=== PATIENT | male | born 1955 | race Caucasian/White ===

== ENCOUNTER 2017-05-02 10:42 | Emergency (ER) | payer OTHER ==
[~2017-05-02] VITALS: Ht 177.8 cm; Wt 93.0 kg
[~2017-05-02 10:42] MED LIST: ACET500 PO; AMOCLA875 PO; ASPI325 PO; ASPI81CH PO; ATOR20 PO; DILT120 PO; ELIQUIS5 MG PO; ENAL10 PO; FISH OIL PO; FISH1000 PO; FLONASE ALLERG9.9 ML; Flecainide Ace150 MG PO; Flonase 0.05% N16 GM; Hair, Skin & N1 EACH PO; MECL25 PO; METF500 PO; MULVITMIND PO; Norco 5-325 Ta1 EACH PO; ROXICODONE5 MG PO; Tambocor100 MG PO
[2017-05-02 12:07] LABS: BASOPHILS ABSOLUTE AUTO 0.02 K/mm3 (0.00-0.23); BASOPHILS PERCENT AUTO 0 % (0-2); EOSINOPHILS PERCENT AUTO 2 % (0-6); Hematocrit 43.6 % (37.0-53.0); Hemoglobin 15.2 g/dL (13.5-17.5); IMMATURE GRAN ABSOLUTE AUTO 0.02 K/mm3 (0.00-0.10); IMMATURE GRAN PERCENT AUTO 0 % (0-1); LYMPHOCYTES ABSOLUTE AUTO 2.03 K/mm3 (0.84-5.20); LYMPHOCYTES PERCENT AUTO 30 % (21-46); MONOCYTES ABSOLUTE AUTO 0.55 K/mm3 (0.16-1.47); MONOCYTES PERCENT AUTO 8 % (4-13); Mean Corpuscular HGB 31.4 pg (26.0-34.0); Mean Corpuscular HGB Conc 34.9 g/dL (31.5-36.5); Mean Corpuscular Volume 90 fL (80-100); Mean Platelet Volume 10.6 fL (9.1-12.4); NEUTROPHILS ABSOLUTE AUTO 4.02 K/mm3 (1.96-9.15); NEUTROPHILS PERCENT AUTO 60 % (41-73); Platelet Count 251 K/mm3 (150-400); RDW Coefficient Variation 12.1 % (11.7-14.2); RDW Standard Deviation 40.1 fL (35.1-46.3); Red Blood Cell Count 4.84 M/mm3 (4.30-5.90); White Blood Cell Count 6.74 K/mm3 (4.00-11.30)
[2017-05-02] MEDS ORDERED: CEPH500 PO (12:25)
[2017-05-02] MEDS ORDERED: Percocet 5-3251 EACH PO (12:25)
[2017-07-23] MEDS ORDERED: HYDCHL25 PO (10:05)
[2017-07-23] MEDS ORDERED: FLONASE ALLERG9.9 ML (10:06)
[2017-07-23] MEDS ORDERED: POTCHL10ER PO (10:06)
[2017-08-05] MEDS ORDERED: Percocet 5-3251 EACH PO (09:50)
== END 2017-05-02 12:44 | disposition home or self-care (01) ==
LOC: ER 10:42
PROVIDERS: Physician Assistant
DX: T81.4XXA Infection following a procedure, initial encounter (principal); Z79.899 Other long term (current) drug therapy; Z79.84 Long term (current) use of oral hypoglycemic drugs
CPT/HCPCS: 36415; 73562-RT; 85025; 85651; 86140; 99283

== ENCOUNTER → 2021-09-16 | Outpatient (CLI) | payer MEDICARE, OTHER ==
[~2021-09-16] MED LIST changes: +CEPH500 PO; +HYDCHL25 PO; +POTCHL10ER PO; +Percocet 5-3251 EACH PO
== END | disposition home or self-care (01) ==
LOC: PLD 11:03 → LAB SHORT 11:03
DX: L82.1 Other seborrheic keratosis (principal)
CPT/HCPCS: 88305

== ENCOUNTER 2021-10-09 14:25 | Emergency (ER) | payer MEDICARE, OTHER ==
[~2021-10-09] VITALS: Ht 180.3 cm; Wt 88.5 kg
[2021-10-09] MEDS ORDERED: Ultram50 MG PO (15:35)
== END 2021-10-09 15:54 | disposition home or self-care (01) ==
LOC: ER 14:25
DX: M54.50 Low back pain, unspecified (principal); W11.XXXA Fall on and from ladder, initial encounter
CPT/HCPCS: 71046; 72100; 96372; 99283-25; J1885

== ENCOUNTER → 2021-10-30 | Outpatient (CLI) | payer MEDICARE, OTHER ==
[~2021-10-30] MED LIST changes: +Ultram50 MG PO
== END | disposition home or self-care (01) ==
LOC: PLD 15:43 → LAB SHORT 15:43
DX: C44.222 Squamous cell carcinoma of skin of right ear and external auricular canal (principal)
CPT/HCPCS: 88305

== ENCOUNTER 2021-12-24 07:45 | Day surgery (SDC) | payer MEDICARE, OTHER ==
[~2021-12-24] VITALS: Ht 175.3 cm; Wt 87.5 kg
[2021-12-24] MEDS ORDERED: WARF4 PO (08:53)
[2021-12-24] MEDS ORDERED: COREG12.5 M1 PO (08:54)
[2021-12-24] MEDS ORDERED: LISI5 PO (08:55)
[2021-12-24] MEDS ORDERED: SERT50 PO (08:55)
--- NOTE | 2021-12-24 09:03 | NUR ---
12/24/21 0903 Jitendra Ndiaye CALL LIGHT WITHIN RECH. FAMILY AT BEDSIDE
--- NOTE | 2021-12-24 09:59 | NUR ---
12/24/21 0959 Leticia Loving SMALL MARSHALL SCAB ON LEFT HAND, DR NOTIFIED. 1 MG EPI ADDED TO EACH OF THE FIRST 3 BAGS OF LR PER ORDER FOR IRRIGATION.
--- NOTE | 2021-12-24 12:02 | NUR ---
12/24/21 1202 Brianna Lacy AT CHAIR SIDE DURING STEP DOWN AND D/C INSTRUCTIONS
== END 2021-12-24 12:01 | disposition home or self-care (01) ==
LOC: ORSCSDS 07:45
PROVIDERS: Orthopaedic Surgery
PROC: 0RNK4ZZ Release Left Shoulder Joint, Percutaneous Endoscopic Approach (ICD-10-PCS; principal; 2021-12-24 09:15)
PROC: 3E0U3GC Introduction of Other Therapeutic Substance into Joints, Percutaneous Approach (ICD-10-PCS; principal; 2021-12-24 09:15)
PROC: 0LM24ZZ Reattachment of Left Shoulder Tendon, Percutaneous Endoscopic Approach (ICD-10-PCS; principal; 2021-12-24 09:15)
DX: M75.122 Complete rotator cuff tear or rupture of left shoulder, not specified as traumatic (principal); S46.812A Strain of other muscles, fascia and tendons at shoulder and upper arm level, left arm, initial encounter; M75.22 Bicipital tendinitis, left shoulder; M75.42 Impingement syndrome of left shoulder; E11.9 Type 2 diabetes mellitus without complications; I10 Essential (primary) hypertension; E78.00 Pure hypercholesterolemia, unspecified; F32.A Depression, unspecified; Z79.899 Other long term (current) drug therapy; Z79.01 Long term (current) use of anticoagulants
CPT/HCPCS: 29827; 29826; 0232T; 82947; A9270; C1713; J0171; J0690; J1100; J2250; J2405; J2704; J3010; J7120

== ENCOUNTER 2023-01-06 15:10 | Emergency (ER) | payer OTHER, MEDICARE ==
[~2023-01-06] VITALS: Ht 175.3 cm; Wt 83.9 kg
[~2023-01-06 15:10] MED LIST changes: +COREG12.5 M1 PO; +LISI5 PO; +SERT50 PO; +WARF4 PO
[2023-01-06 21:49] VITALS: BP 166/90
== END 2023-01-06 19:14 | disposition home or self-care (01) ==
LOC: ER 15:10
DX: S00.81XA Abrasion of other part of head, initial encounter (principal); M54.9 Dorsalgia, unspecified; V68.0XXA Driver of heavy transport vehicle injured in noncollision transport accident in nontraffic accident, initial encounter; Z88.8 Allergy status to other drugs, medicaments and biological substances; Z79.899 Other long term (current) drug therapy; Z79.01 Long term (current) use of anticoagulants; Z79.84 Long term (current) use of oral hypoglycemic drugs
CPT/HCPCS: 70450; 72070; 99283-25

== ENCOUNTER 2023-05-02 13:12 | Emergency (ER) | payer MEDICARE, OTHER ==
[~2023-05-02] VITALS: Ht 175.3 cm; Wt 86.2 kg
[2023-05-02 13:52] LABS: BASOPHILS ABSOLUTE AUTO 0.03 K/mm3 (0.00-0.23); BASOPHILS PERCENT AUTO 1 % (0-2); EOSINOPHILS ABSOLUTE AUTO 0.18 K/mm3 (0.00-0.68); EOSINOPHILS PERCENT AUTO 3 % (0-6); IMMATURE GRAN ABSOLUTE AUTO 0.02 K/mm3 (0.00-0.10); IMMATURE GRAN PERCENT AUTO 0 % (0-1); LYMPHOCYTES PERCENT AUTO 24 % (21-46); MONOCYTES ABSOLUTE AUTO 0.58 K/mm3 (0.16-1.47); MONOCYTES PERCENT AUTO 10 % (4-13); Mean Corpuscular HGB 30.8 pg (26.0-34.0); Mean Corpuscular Volume 88 fL (80-100); Mean Platelet Volume 10.6 fL (9.1-12.4); NEUTROPHILS ABSOLUTE AUTO 3.52 K/mm3 (1.96-9.15); NEUTROPHILS PERCENT AUTO 62 % (41-73); Platelet Count 234 K/mm3 (150-400); RDW Coefficient Variation 12.3 % (11.7-14.2); RDW Standard Deviation 39.9 fL (35.1-46.3); Red Blood Cell Count 4.54 M/mm3 (4.30-5.90); White Blood Cell Count 5.73 K/mm3 (4.00-11.30)
[2023-05-02 14:07] LABS: Albumin, Blood 3.6 g/dL (3.4-5.0); Albumin/Globulin Ratio 1.1 (0.8-1.8); Bilirubin, Total 0.5 mg/dL (0.1-1.0); Bun/Creatinine Ratio 22.6 (12.0-20.0); Calcium, Blood 8.9 mg/dL (8.5-10.1); Creatinine, Blood 0.71 mg/dL (0.60-1.20); Globulin, Blood 3.3 g/dL (2.2-4.0); Potassium, Blood 3.6 mmol/L (3.5-5.5); Total Protein, Blood 6.9 g/dL (6.4-8.2)
[2023-05-02] MEDS ORDERED: MAGNESIUM OXID500 MG PO (14:38)
[2023-05-02] MEDS ORDERED: FLUT.05NI (14:39)
[2023-05-02] MEDS ORDERED: DERMACINRX FOL1 EAC2 PO (14:40)
[2023-05-02] MEDS ORDERED: ZINC15 (14:41)
[2023-05-02] MEDS ORDERED: ASCO500 (14:41)
[2023-05-02 17:09] VITALS: BP 155/80
== END 2023-05-02 17:28 | disposition home or self-care (01) ==
LOC: ER 13:12
PROVIDERS: Student in an Organized Health Care Education/Training Program
DX: K42.9 Umbilical hernia without obstruction or gangrene (principal); K85.90 Acute pancreatitis without necrosis or infection, unspecified; Z88.8 Allergy status to other drugs, medicaments and biological substances; Z79.899 Other long term (current) drug therapy; Z79.84 Long term (current) use of oral hypoglycemic drugs; Z79.01 Long term (current) use of anticoagulants
CPT/HCPCS: 74177; 74181; 80053; 83605; 83690; 85025; 96374-59; 96375; 99284-25; J2405; J3010; Q9967

== ENCOUNTER 2023-12-18 06:59 | Day surgery (SDC) | payer MEDICARE, OTHER ==
[~2023-12-18] VITALS: Ht 172.7 cm; Wt 85.6 kg
[~2023-12-18 06:59] MED LIST changes: +ASCO500; +Bupivacaine 0.5% HCl 5 MG/ML 30MLVIAL ONE; +CeFAZolin Sodium 2,000 MG VIAL ONE; +DERMACINRX FOL1 EAC2 PO; +Dexamethasone Sod Phos 10 MG/ML 1ML VIAL ONE; +FLUT.05NI; +FentaNYL Citrate 50 MCG/ML 2 ML Injection ONE; +Lactated Ringer's 1,000 ML IV ONE; +Lidocaine 2%-Epineph 1:200000 20 ML SDV ONE; +MAGNESIUM OXID500 MG PO; +Midazolam HCl 1MG / ML 2ML Vial ONE; +NS 50 ML IV ONE; +Ondansetron HCl 2 MG / ML 2ML Vial ONE; +Phenylephrine HCl 100 MCG/ML-NS 10MLSYR (1MG/10ML) ONE; +Rocuronium Bromide 10 MG/ML 5ML Injection IV ONE; +ZINC15; +propofoL 20 ML IV ONE
[2023-12-18] MEDS ORDERED: ATOR20 (07:23)
[2023-12-18] MEDS ORDERED: LORA1SY (07:26)
[2023-12-18] MEDS ORDERED: B12-FOLIC ACID1 EACH (07:28)
[2023-12-18] MEDS ORDERED: Lactated Ringer's 1,000 ML IV ONE ×2 (07:30→09:45)
--- NOTE | 2023-12-18 07:50 | NUR ---
12/18/23 0750 Bebe Alvares AT BEDSIDE
[2023-12-18] MEDS ORDERED: Tranexamic Acid 100 ML IV ONE (08:25)
[2023-12-18] MEDS ORDERED: Ropivacaine 0.5% HCl/Pf 123.125 MG,EPINEPHrine HCL 0.25 MG,Ketorolac Tromethamine 15 MG... INFIL SCH (08:30)
[2023-12-18] MEDS ORDERED: CeFAZolin Sodium 2,000 MG in NS 100 ML IV SCH (08:35)
[2023-12-18] MEDS ORDERED: ePHEDrine Sulfate 50 MG/ML 1ML Injection ONE (08:47)
--- NOTE | 2023-12-18 09:48 | NUR ---
12/18/23 0948 Neha Roach FIRST DOSE OF TXA STARTED IN OR AT 0840 BY ANESTHESIA.
[2023-12-18] MEDS ORDERED: Sugammadex Sodium 200 MG/2ML SDV (100 MG/ML) ONE (10:32)
[2023-12-18] MEDS ORDERED: OxyCODONE HCL 5 MG TAB ONE (12:33)
[2023-12-18 12:42] VITALS: BP 128/65
--- NOTE | 2023-12-18 12:55 | NUR ---
12/18/23 2116 Brianna Lacy PT HAS HAD PRIO KNEE SURGERY WELL SHOULDER SURGERY. NO QUESTIONS OR CONCERS. PRESENT FOR DISCHARGE.
== END 2023-12-18 12:21 | disposition home or self-care (01) ==
LOC: ORSCSDS 06:59
PROVIDERS: Orthopaedic Surgery
PROC: 0RRJ00Z Replacement of Right Shoulder Joint with Reverse Ball and Socket Synthetic Substitute, Open Approach (ICD-10-PCS; principal; 2023-12-18 07:30)
DX: M12.811 Other specific arthropathies, not elsewhere classified, right shoulder (principal); E11.9 Type 2 diabetes mellitus without complications; I10 Essential (primary) hypertension; E78.5 Hyperlipidemia, unspecified; F41.9 Anxiety disorder, unspecified; F32.A Depression, unspecified; Z96.653 Presence of artificial knee joint, bilateral; Z79.01 Long term (current) use of anticoagulants; Z79.84 Long term (current) use of oral hypoglycemic drugs; Z79.899 Other long term (current) drug therapy
CPT/HCPCS: 82947; A9270; C1713; C1776; J0171; J0690; J0735; J1100; J1885; J2250; J2371; J2405; J2704; J2795; J3010; J7120

== ENCOUNTER 2025-03-27 12:06 | Emergency (ER) | payer MEDICARE, BC ==
[~2025-03-27] VITALS: Ht 175.3 cm; Wt 85.3 kg
[~2025-03-27 12:06] MED LIST changes: +ATOR20; +B12-FOLIC ACID1 EACH; -Bupivacaine 0.5% HCl 5 MG/ML 30MLVIAL ONE; -CeFAZolin Sodium 2,000 MG VIAL ONE; -Dexamethasone Sod Phos 10 MG/ML 1ML VIAL ONE; -FentaNYL Citrate 50 MCG/ML 2 ML Injection ONE; +LORA1SY; -Lactated Ringer's 1,000 ML IV ONE; -Lidocaine 2%-Epineph 1:200000 20 ML SDV ONE; -Midazolam HCl 1MG / ML 2ML Vial ONE; -NS 50 ML IV ONE; -Ondansetron HCl 2 MG / ML 2ML Vial ONE; -Phenylephrine HCl 100 MCG/ML-NS 10MLSYR (1MG/10ML) ONE; -Rocuronium Bromide 10 MG/ML 5ML Injection IV ONE; -propofoL 20 ML IV ONE
[2025-03-27 12:36] LABS: BASOPHILS ABSOLUTE AUTO 0.04 K/mm3 (0.00-0.23); BASOPHILS PERCENT AUTO 1 % (0-2); EOSINOPHILS ABSOLUTE AUTO 0.17 K/mm3 (0.00-0.68); EOSINOPHILS PERCENT AUTO 3 % (0-6); Hematocrit 48.4 % (37.0-53.0); Hemoglobin 16.9 g/dL (13.5-17.5); IMMATURE GRAN ABSOLUTE AUTO 0.02 K/mm3 (0.00-0.10); IMMATURE GRAN PERCENT AUTO 0 % (0-1); LYMPHOCYTES ABSOLUTE AUTO 1.56 K/mm3 (0.84-5.20); LYMPHOCYTES PERCENT AUTO 30 % (21-46); MONOCYTES ABSOLUTE AUTO 0.53 K/mm3 (0.16-1.47); MONOCYTES PERCENT AUTO 10 % (4-13); Mean Corpuscular HGB Conc 34.9 g/dL (31.5-36.5); Mean Corpuscular Volume 90 fL (80-100); NEUTROPHILS ABSOLUTE AUTO 2.96 K/mm3 (1.96-9.15); NEUTROPHILS PERCENT AUTO 56 % (41-73); NRBC ABSOLUTE 0.00 K/mm3 (0.00-0.02); NRBC Auto 0.0 /100 WBC (0.0-0.2); Platelet Count 180 K/mm3 (150-400); RDW Coefficient Variation 12.6 % (11.7-14.2); RDW Standard Deviation 41.8 fL (35.1-46.3)
[2025-03-27] MEDS ORDERED: CARVEDILOL12.5 MG PO (12:39)
[2025-03-27] MEDS ORDERED: WARF5 PO (12:43)
[2025-03-27] MEDS ORDERED: JARDIANCE10 MG PO (12:44)
[2025-03-27] MEDS ORDERED: Propofol 10mg/ml 20 ml Vial (Procedural) IV SCH (13:20)
[2025-03-27] MEDS ORDERED: NS 500 ML IV SCH (13:20)
[2025-03-27 13:21] LABS: Prothrombin Time Results 28.0 Sec (9.7-11.5)
[2025-03-27 13:49] LABS: Alanine Aminotransfer (ALT/SGP 69.0 U/L (12-78); Albumin, Blood 4.0 g/dL (3.4-5.0); Albumin/Globulin Ratio 1.3 (0.8-1.8); Anion Gap 10.0 mmol/L (3-11); Aspartate Aminotrans (AST/SGOT 45.0 U/L (12-37); Bilirubin, Total 0.6 mg/dL (0.1-1.0); Blood Urea Nitrogen 18.0 mg/dL (8-24); CO2, Blood 27.0 mmol/L (21-32); Calcium, Blood 9.1 mg/dL (8.5-10.1); Chloride, Blood 103.0 mmol/L (98-108); Creatinine, Blood 0.91 mg/dL (0.60-1.20); Globulin, Blood 3.1 g/dL (2.2-4.0); Glucose, Blood 160.0 mg/dL (70-99); Potassium, Blood 4.4 mmol/L (3.5-5.5); Sodium, Blood 136.0 mmol/L (136-145); Total Protein, Blood 7.1 g/dL (6.4-8.2)
[2025-03-27 16:15] VITALS: BP 123/76
== END 2025-03-27 16:30 | disposition home or self-care (01) ==
LOC: ER 12:06
PROVIDERS: Physician Assistant
DX: I48.92 Unspecified atrial flutter (principal); I48.91 Unspecified atrial fibrillation; R00.0 Tachycardia, unspecified; Z79.01 Long term (current) use of anticoagulants; Z79.51 Long term (current) use of inhaled steroids; Z79.84 Long term (current) use of oral hypoglycemic drugs; Z79.899 Other long term (current) drug therapy; Z91.048 Other nonmedicinal substance allergy status; Z91.040 Latex allergy status; Z88.8 Allergy status to other drugs, medicaments and biological substances
CPT/HCPCS: 71046; 80053; 84484; 85025; 85610; 85730; 92960; 93005; 93010; 99152; 99285-25; J2704; J7030